=== PATIENT | male | born 1975 | race Caucasian/White ===

== ENCOUNTER 2016-07-01 10:42 | Emergency (ER) | payer SELFPAY | END 2016-07-01 10:43 | disposition left against medical advice (07) | LOC: ED 10:42 | DX: M25.559 Pain in unspecified hip (principal); Z53.21 Procedure and treatment not carried out due to patient leaving prior to being seen by health care provider ==

== ENCOUNTER 2018-07-21 11:25 | Emergency (ER) | payer MEDICAID ==
--- NOTE | 2018-07-21 11:40 | Emergency Department Report ---
Blank Doc - Documentation Documentation: 43 y o male returns from last week visit cc of low back pain bilarteral , tightening pain, worsen since last night denies dysuria, trauma, heavy lifting ACC eval stable no acute distress amnbulatory
--- NOTE | 2018-07-21 12:44 | Emergency Department Report ---
ED Back Pain/Injury HPI - General Chief Complaint: Back Pain/Injury Stated Complaint: BACK PAIN Time Seen by Provider: 07/21/18 11:38 Source: patient Limitations: No Limitations - History of Present Illness Initial Comments: back pain, ongoing for months worse w/ movement no numbness/weakness no bowel/bladder dysfunction no watermaster steroid use, ca, fevers, IVDU seen recently, felt better, now returned though not as much radiation Complaint: back pain -: Gradual, days(s) Similar Symptoms Previously: Yes Place: home Radiation: none Severity: moderate Quality: aching Consistency: constant Improves With: immobilization Worsens With: movement Context: unknown Associated Symptoms: denies other symptoms - Related Data Previous Rx's Medication Instructions Recorded Last Taken Type Cyclobenzaprine [Flexeril] 10 mg PO TID PRN #10 tablet 07/15/18 Unknown Rx Naproxen [Naprosyn] 500 mg PO BID PRN #20 tablet 07/15/18 Unknown Rx Lidocaine [Lidoderm] 1 each TP DAILY #15 adh..patch 07/21/18 Unknown Rx predniSONE [Deltasone] 40 mg PO DAILY #10 tablet 07/21/18 Unknown Rx tiZANidine [Zanaflex 4mg TAB] 4 mg PO Q6H #20 tablet 07/21/18 Unknown Rx Allergies Allergy/AdvReac Type Severity Reaction Status Date / Time No Known Allergies Allergy Verified 07/21/18 11:39 ED Review of Systems ROS: Stated complaint: BACK PAIN Other details as noted in HPI Comment: All other systems reviewed and negative Musculoskeletal: as per HPI ED Past Medical Hx - Past Medical History Medical history: no medical history ED Back Pain Physical Exam - Exam General: Vital signs noted. No distress. Alert and acting appropriately. Back/Abdomen: Yes Perilumbar Tenderness, No Abdominal Tenderness, No Perithoracic Tenderness, No Sacroiliac Tenderness, No Flank Tenderness, No Straight Leg Raise Pain Neuro: Yes Normal Sensation, Yes Normal DTR's, Yes Normal Gait, No Motor Weakness ED Course Vital Signs 07/21/18 11:38 Temperature 98 F Pulse Rate 104 H Respiratory 20 Rate Blood Pressure 134/95 [Right] O2 Sat by Pulse 97 Oximetry ED Medical Decision Making - Medical Decision Making ongoing back pain, no midline tenderness no red flags no signs cord compression low suspicion for epidural abscess/osteomyelitis advised f/u ortho for these ongoing symptoms - Differential Diagnosis back strain, sciatica, spasms Critical care attestation.: If time is entered above; I have spent that time in minutes in the direct care of this critically ill patient, excluding procedure time. ED Disposition Clinical Impression: Back pain Qualifiers: Back pain location: low back pain Chronicity: chronic Back pain laterality: unspecified Sciatica presence: without sciatica Qualified Code(s): M54.5 - Low back pain; G89.29 - Other chronic pain Disposition: TO HOME OR SELFCARE Is pt being admited?: No Does the pt Need Aspirin: No Condition: Good Instructions: Low Back Strain (ED), Acute Low Back Pain (ED) Prescriptions: predniSONE [Deltasone] 40 mg PO DAILY #10 tablet Lidocaine [Lidoderm] 1 each TP DAILY #15 adh..patch tiZANidine [Zanaflex 4mg TAB] 4 mg PO Q6H #20 tablet Referrals: BHARTI MCCLELLAN MD [Staff Physician] - 3-5 Days PRIMARY CARE, [Primary Care Provider] - 3-5 Days Time of Disposition: 12:43
[2018-07-21 13:03] VITALS: BP 131/90
== END 2018-07-21 13:02 | disposition home or self-care (01) ==
LOC: ED 11:25
DX: M54.5 Low back pain (principal); G89.29 Other chronic pain
CPT/HCPCS: 99282

== ENCOUNTER 2019-07-16 13:21 | Emergency (ER) | payer MEDICAID ==
[2019-07-16 13:30] VITALS: BP 133/88
--- NOTE | 2019-07-16 16:46 | Emergency Department Report ---
ED Back Pain/Injury HPI - General Chief Complaint: Back Pain/Injury Stated Complaint: BACK PAIN Time Seen by Provider: 07/16/19 16:36 Source: patient Limitations: No Limitations - History of Present Illness MD Complaint: back pain -: Gradual Similar Symptoms Previously: Yes (Had this occur couple years ago requiring orthopedic and physical therapy) Place: home Consistency: constant Improves With: none Worsens With: none Associated Symptoms: denies other symptoms - Related Data Previous Rx's Medication Instructions Recorded Last Taken Type Cyclobenzaprine [Flexeril] 10 mg PO TID PRN #10 tablet 07/15/18 Unknown Rx Naproxen [Naprosyn] 500 mg PO BID PRN #20 tablet 07/15/18 Unknown Rx Lidocaine [Lidoderm] 1 each TP DAILY #15 adh..patch 07/21/18 Unknown Rx predniSONE [Deltasone] 40 mg PO DAILY #10 tablet 07/21/18 Unknown Rx tiZANidine [Zanaflex 4mg TAB] 4 mg PO Q6H #20 tablet 07/21/18 Unknown Rx Ketorolac [Toradol] 10 mg PO Q6H PRN #14 tablet 07/16/19 Unknown Rx Metoclopramide [Reglan] 10 mg PO BID #10 tab 07/16/19 Unknown Rx Allergies Allergy/AdvReac Type Severity Reaction Status Date / Time No Known Allergies Allergy Verified 07/21/18 11:39 ED Review of Systems ROS: Stated complaint: BACK PAIN Other details as noted in HPI Comment: All other systems reviewed and negative ED Past Medical Hx - Past Medical History Previous Medical History?: No Hx Asthma: Yes - Surgical History Past Surgical History?: No - Social History Smoking Status: Never Smoker Substance Use Type: None - Medications Home Medications: Home Medications Medication Instructions Recorded Confirmed Last Taken Type Cyclobenzaprine [Flexeril] 10 mg PO TID PRN #10 tablet 07/15/18 Unknown Rx Naproxen [Naprosyn] 500 mg PO BID PRN #20 tablet 07/15/18 Unknown Rx Lidocaine [Lidoderm] 1 each TP DAILY #15 adh..patch 07/21/18 Unknown Rx predniSONE [Deltasone] 40 mg PO DAILY #10 tablet 07/21/18 Unknown Rx tiZANidine [Zanaflex 4mg TAB] 4 mg PO Q6H #20 tablet 07/21/18 Unknown Rx Ketorolac [Toradol] 10 mg PO Q6H PRN #14 tablet 07/16/19 Unknown Rx Metoclopramide [Reglan] 10 mg PO BID #10 tab 07/16/19 Unknown Rx ED Physical Exam - General Limitations: No Limitations General appearance: alert, in no apparent distress - Head Head exam: Present: atraumatic, normocephalic - Eye Eye exam: Present: normal appearance, PERRL, EOMI Pupils: Present: normal accommodation - ENT ENT exam: Present: normal exam, normal orophraynx, mucous membranes moist, TM's normal bilaterally - Neck Neck exam: Present: normal inspection - Respiratory Respiratory exam: Present: normal lung sounds bilaterally. Absent: respiratory distress, wheezes, rales, chest wall tenderness, accessory muscle use, decreased breath sounds - Cardiovascular Cardiovascular Exam: Present: regular rate, normal rhythm. Absent: systolic murmur, diastolic murmur, rubs, gallop - GI/Abdominal GI/Abdominal exam: Present: soft, normal bowel sounds - Rectal Rectal exam: Present: deferred - Extremities Exam Extremities exam: Present: normal inspection, normal capillary refill - Back Exam Back exam: Present: normal inspection, tenderness, paraspinal tenderness, other (Negative straight leg raise pain to the right sacroiliac joint. pain on Fran's test). Absent: CVA tenderness (R), CVA tenderness (L) - Neurological Exam Neurological exam: Present: alert, oriented X3, CN II-XII intact - Psychiatric Psychiatric exam: Present: normal affect, normal mood. Absent: anxious, flat affect, manic, homicidal ideation, suicidal ideation - Skin Skin exam: Present: warm, dry, intact, normal color. Absent: rash, cyanosis, diaphoretic, urticaria ED Course Vital Signs 07/16/19 13:29 Temperature 97.6 F Pulse Rate 83 Respiratory 16 Rate Blood Pressure 133/88 O2 Sat by Pulse 96 Oximetry ED Medical Decision Making - Medical Decision Making Pt presents the emergency department complaining of back pain most consistent with lumbar go with sciatica back Pain Most Consistent with Strain/Contusion. Differential Diagnosis Includes Lumbar Go Versus Musculoskeletal Spasm, Strain Versus Sciatica. No Back Pain Red Flags on History or Physical. Presentation Not Consistent with Malignancy, Fracture, Cauda Equina, Abdominal Aortic Aneurysm, Viscus Perforation, Pulmonary Embolism, Renal Colic, Pyelonephritis. Patient reports no B symptoms, trauma trauma, incontinence, saddle anesthesia, distal weakness, urinary symptoms and is a febrile. Critical care attestation.: If time is entered above; I have spent that time in minutes in the direct care of this critically ill patient, excluding procedure time. ED Disposition Clinical Impression: Lumbago with sciatica, right side Disposition: DC- TO HOME OR SELFCARE Is pt being admited?: No Does the pt Need Aspirin: No Condition: Stable Prescriptions: Metoclopramide [Reglan] 10 mg PO BID #10 tab Ketorolac [Toradol] 10 mg PO Q6H PRN #14 tablet PRN Reason: Pain Referrals: PRIMARY CAREMD [Primary Care Provider] - 3-5 Days BHARTI MCCLELLAN MD [Staff Physician] - 3-5 Days
== END 2019-07-16 17:45 | disposition home or self-care (01) ==
LOC: ED 13:21
DX: M54.41 Lumbago with sciatica, right side (principal); J45.909 Unspecified asthma, uncomplicated; Z79.899 Other long term (current) drug therapy
CPT/HCPCS: 99282

== ENCOUNTER 2019-11-01 08:18 | Emergency (ER) | payer MEDICAID ==
[2019-11-01 08:40] VITALS: BP 120/81
== END 2019-11-01 10:26 | disposition left against medical advice (07) ==
LOC: ED 08:18
DX: R07.89 Other chest pain (principal); R06.02 Shortness of breath; Z53.21 Procedure and treatment not carried out due to patient leaving prior to being seen by health care provider
CPT/HCPCS: 93005

== ENCOUNTER 2021-02-09 09:47 | Emergency (ER) | payer SELFPAY ==
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
[2021-02-09 10:55] VITALS: BP 109/80
== END 2021-02-09 10:55 | disposition home or self-care (01) ==
LOC: ED 09:47
DX: M54.50 Low back pain, unspecified (principal); J45.909 Unspecified asthma, uncomplicated; Y04.8XXA Assault by other bodily force, initial encounter; Y93.89 Activity, other specified; Y92.89 Other specified places as the place of occurrence of the external cause; Y99.8 Other external cause status
CPT/HCPCS: 99282